=== PATIENT | male | born 1945 | race Caucasian/White ===

== ENCOUNTER 2017-02-21 10:34 | Observation (INO) | payer MEDICARE ==
[~2017-02-21] VITALS: Ht 182.9 cm; Wt 89.4 kg
[2017-02-21] VITALS (7 sets, daily range): BP systolic 125–148; BP diastolic 70–88; PULSE 54–70; RESP 12–18; O2SAT 95–98
[~2017-02-21 10:34] MED LIST: ASPI-13 PO; ATOR80TA77 PO; CHOL100045 PO; DOXA4TAB3 PO
--- NOTE | 2017-02-21 10:51 | ED.REPORT ---
HPI-Chest Pain 40 and Over Date of Service Feb 21, 2017 ED Provider: Dr. Thomason Pt is a 71 y/o male w/ a hx of CAD s/p CABGx3 and stents, HTN, presenting to the ED c/o a 3 hr episode of upper back pain which occurred 2 days ago. 2 days ago he experienced aching upper back pain with radiation to the left posterior neck which lasted 3-4 hours. His pain was accompanied by shortness of breath. Symptoms were not exacerbated by moving or bending. His has dementia so he did not want to leave her alone that day. He went to his PCP Dr. Murray yesterday who performed an EKG and bloodwork and told him that everything was normal although his pain was concerning for TAD. Pt denies any CP, cough, fever , chills, diaphoresis, abdominal pain, N/V/D. Nursing Notes Stated Complaint: CHEST PAIN/SOB Chief Complaint: Chest Pain Nursing Notes Reviewed: Yes Allergies: Coded Allergies: No Known Allergies (Verified , 02/21/17) Scheduled Aspirin (Aspirin) 81 Mg Tablet 81 MG PO DAILY Atorvastatin Calcium (Atorvastatin Calcium) 80 Mg Tablet 80 MG PO DAILY Doxazosin Mesylate (Doxazosin Mesylate) 4 Mg Tablet 4 MG PO DAILY Omeprazole (Omeprazole) 20 Mg Capsule. 20 MG PO DAILY General Time Seen by MD: 10:50 Chief Complaint Back pain Hx Obtained From: Patient Arrived By: Walk-in Sudden in Onset?: No Onset Occurred: 2 days ago Symptom Duration: 1 - 4 hours Location: : Back Quality: Painful Radiation: : Neck Severity: Current: No pain currently Severity: Maximum: Pain level 8 out of 10 Recent Healthcare: Recent doctor visit, Recent testing Past Medical History Past Medical History GERD Hypertension CAD s/p CABG x3 and stents Hiatal hernia s/p repair Past Surgical History CABGx3 at in 1998 Cardiac stent Cholecystectomy Hiatal hernia repair Smoking History Former Smoker Social History Alcohol Use: Denies alcohol use Drug Use: Denies drug use Other Social History: 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 Physical Exam Initial Vital Signs Vital Signs (First) Date Time Temp Pulse Resp B/P Pulse Ox O2 Delivery O2 Flow Rate FiO2 02/21/17 10:49 36.2 58 12 135/79 97 Room Air Initial VS: Reviewed, Vital signs normal Head / Eyes: Atraumatic, Normocephalic, PERRL ENT: Mucous membranes moist, Conjunctiva normal, No scleral icterus Neck: Supple, Full range of motion Extremities: Vascular intact, Neuro intact, No swelling, No tenderness Skin: Warm, Dry, No cyanosis Neurologic: Alert, Oriented, Nonfocal Psychiatric: Mood/affect normal, Behavior normal, Normal thought content General/Constitutional: Awake, Alert, No acute distress, Well appearing, Cooperative, Not toxic appearing Respiratory / Chest: Atraumatic, Breath sounds NL, Breath sounds = bilat, No respiratory distress, No rales, No rhonchi, No wheezing, No retractions, No stridor, No chest tenderness, No chest wall deformity, No crepitus Well healed sternotomy scar anterior chest wall Cardiovascular: Heart rate NL, Regular rhythm, Heart sounds NL, No gallop, No murmurs, No rubs, Cap refill not delayed, Peripheral circulation NL Abdomen: Atraumatic, Soft, No guarding, No rebound, No distention, No palpable mass Back: Atraumatic, Inspection NL, Full range of motion, Painless range of motion , Non-tender, No midline vertebral tend, No paraspinal tenderness, No muscle spasm Interpretation & Diagnostics Interpretation & Diagnostics: CT chest/abd w/ and w/out contrast: IMPRESSION: 1. No acute process. 2. Focal limited dissection within the distal abdominal aorta, likely unchanged compared to 9.6.14, allowing for differences in technique. 3. Coronary artery disease. 4. Nonobstructing renal calculi. Dictated by: Whit Angela M.D. on 02/21/2017 at 15:23 Approved by: Whit Angela M.D. on 02/21/2017 at 15:29 Lab Results Interpretation Result Diagram: 02/21/17 1100 02/21/17 1100 Test 02/21/17 11:00 02/21/17 15:45 02/21/17 16:00 White Blood Count 3.8th/mm3 (3.8-10.1) Red Blood Count 4.42mil/mm3 (4.40-5.80) Hemoglobin 14.1g/dL (13.8-17.2) Hematocrit 40.7% (41.0-50.0) Mean Corpuscular Volume 92.1fL (81-100) Mean Corpuscular Hemoglobin 31.9pg (27.0-35.0) Mean Corpuscular Hemoglobin Concent 34.6% (32.0-37.0) Red Cell Distribution Width 13.3% (12.3-15.4) Platelet Count 139bil/L (150-400) Neutrophils (%) (Auto) 60.9% (40-74) Lymphocytes (%) (Auto) 25.1% (14-46) Monocytes (%) (Auto) 10.8% (4-12) Eosinophils (%) (Auto) 2.6% (0-5) Basophils (%) (Auto) 0.3% (0-3) Sodium Level 136mEq/L (134-144) Potassium Level 3.8mEq/L (3.5-5.2) Chloride Level 102mEq/L (97-108) Carbon Dioxide Level 22mmol/L (18-29) Blood Urea Nitrogen 17mg/dL (8-27) Creatinine 1.09mg/dL (0.76-1.27) Estimat Glomerular Filtration Rate 71mL/min (>59) Glucose Level 127mg/dL (60-99) Calcium Level 8.3mg/dL (8.5-10.1) Total Bilirubin 0.6mg/dL (0.0-1.2) Aspartate Amino Transf (AST/SGOT) 28U/L (0-50) Alanine Aminotransferase (ALT/SGPT) 24U/L (0-44) Alkaline Phosphatase 82U/L (25-160) Total Protein 6.6g/dL (6.4-8.4) Albumin 4.1g/dL (3.4-5.0) Hold Urine Received (Received) Magnesium Level 1.9mg/dL (1.6-2.6) Total Creatine Kinase 66U/L (21-232) Creatine Kinase MB 1.3ng/mL (0.0-10.4) Creatine Kinase MB % % (0.0-5.0) Troponin T < 0.010ug/L (0.0-0.011) Thyroid Stimulating Hormone (TSH) 2.110uIU/mL (0.450-4.500) ECG Interpretation ECG Interpretation: Sinus rhythm rate 58 Inferior Q waves present Time: 11:22 Interpreted by: ED physician Normal ECG Interpretation: No acute ischemic changes, No change from prior ECGs X-Ray Chest Interpretation Chest Xray Interpretation: IMPRESSION: No acute cardiopulmonary disease. Dictated by: Chuy Cheema RRA Interpreted: Radha Zazueta MD on 02/21/2017 at 11:36 Transcribed by: MARIANN on 02/21/2017 at 11:36 View: Portable, 1 view Interpretation / Wet Read by: Interpret - Radiologist Re-Eval/Medical Decision Med Decision/Clinical Course Pt is a 71 y/o male w/ a hx of CAD s/p CABGx3 and stents, HTN, presenting to the ED c/o a 3 hr episode of upper back pain which occurred 2 days ago. 2 days ago he experienced aching upper back pain with radiation to the left posterior neck which lasted 3-4 hours. His pain was accompanied by shortness of breath. Symptoms were not exacerbated by moving or bending. His has dementia so he did not want to leave her alone that day. He went to his PCP Dr. Murray yesterday who performed an EKG and bloodwork and told him that everything was normal although his pain was concerning for TAD. Pt denies any CP, cough, fever , chills, diaphoresis, abdominal pain, N/V/D. The emergency department the patient is afebrile, hemodynamically stable, chest pain-free and in no apparent distress. EKG was obtained and interpreted by myself as documented above. CXR: Obtained, reviewed and interpreted by myself shows no evidence of acute infiltrates, effusions or pneumothorax. Cardiac and mediastinal silhouette normal. No bony or soft tissue abnormalities. Labs notable as below: CBC: unremarkable CMP: unremarkable Troponin: negative She was discussed in depth with his primary care physician Dr. Murray remains concerned about possible acute coronary syndrome versus thoracic aortic dissection told this does seem relatively unlikely given the overall presentation. That being said I opted to obtain aortogram is documented below: 1. No acute process. 2. Focal limited dissection within the distal abdominal aorta, likely unchanged compared to 9.6.14, allowing for differences in technique. 3. Coronary artery disease. 4. Nonobstructing renal calculi. Region of focal dissection within the distal abdominal aorta is somewhat confounding as this does not seem to fit his clinical presentation at all. Apparently this is not new and there is no evidence that this has involved since the prior CT scan. He likely should be further discussed and evaluated by a cardiothoracic surgeon though I doubt that this is claims his presentation today. From a cardiac perspective the patient is high risk and warrants admission for serial cardiac enzymes and further evaluation of acute coronary syndrome. Patient was transferred in stable condition. Time of Eval: 15:39 Re-Evaluation/Progress Note: Pt rechecked. Informed pt of need for admission. Pt understands and agrees with plan for admission. All questions addressed. 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 Counseled Regarding: Diagnosis, Lab results, Need for follow-up, When/why to return to ED Discharge & Departure Primary Impression: Dissection of abdominal aorta Additional Impressions: Upper back pain Chest pain Chest pain type: unspecified Qualified Code: R07.9 - Chest pain, unspecified History of coronary artery disease Disposition: ADMITTED TO HOSPITAL Discharge Condition All VS Reviewed: Yes Condition: Stable Referrals: Jose Murray MD (PCP) Nitinibluis f Attestation Portions of this note were transcribed by Jason Mcarthur. I, Dr. Thomason personally performed the history, physical exam and medical decision-making; I reviewed and confirmed the accuracy of the information in the transcribed note. Signed by April Martin, 02/21/17 - 1300 copies to: Jose Murray MD, Beck O MD Feb 21, 2017 10:51 JASON MCARTHUR Feb 21, 2017 11:22
[2017-02-21 11:26] LABS: BASOPHILS % (AUTO) 0.3 % (0-3); EOSINOPHILS % (AUTO) 2.6 % (0-5); MONOCYTES % (AUTO) 10.8 % (4-12); Mean Corpuscular Hemoglobin 31.9 pg (27.0-35.0); Mean Corpuscular Volume 92.1 fL (81-100); NEUTROPHILS % (AUTO) 60.9 % (40-74); Platelet Count 139 bil/L (150-400)
--- NOTE | 2017-02-21 11:36 | DRSVH ---
PROCEDURE: X-RAY CHEST ONE VIEW, PORTABLE ([id number]) INDICATIONS: pain TECHNIQUE: One view of the chest was acquired. COMPARISON: None. FINDINGS: Surgical changes and devices: Post median sternotomy. Lungs and pleura: No pleural effusions or pneumothorax. Lungs are clear. Mediastinum: Mediastinal contours appear normal. Heart size is normal. Bones and chest wall: No suspicious bony lesions. Overlying soft tissues appear unremarkable. IMPRESSION: No acute cardiopulmonary disease. Dictated by: Chuy Cheema [facility] Interpreted: Radha Zazueta MD on 02/21/2017 at 11:36 Transcribed by: MARIANN on 02/21/2017 at 11:36 Approved by: Radha Zazueta MD, PhD on 02/21/2017 at 16:50
[2017-02-21 11:49] LABS: TROPONIN T < 0.010 ug/L (0.0-0.011)
[2017-02-21 11:57] LABS: Magnesium 1.9 mg/dL (1.6-2.6)
--- NOTE | 2017-02-21 15:30 | DRSVH ---
PROCEDURE: CT ANG CHEST/ABD W/WO CONTRAST ([id number]) INDICATIONS: CHEST PAIN TECHNIQUE: Precontrast 5 mm thick sections acquired from the lung apices to the iliac crests. After the adminis tration of intravenous contrast, 3 mm thick sections again acquired from the lung apices to the iliac crests. 3-dimensional maximum intensity projection (MIP) oblique sagittal and coronal reformats wer e then acquired, and/or 3-dimensional volume rendering reformats. For radiation dose reduction, the following was used: automated exposure control. COMPARISON: [facility], CT, IVP-CT (ABD W/WO;PEL W/W/O), 08/27/2014, 11:08. FINDINGS: Image quality: Excellent. AORTA: The thoracic aorta is within normal limits, with no evidence of dissection, nor aneurysm. The re is a focal limited dissection within the distal abdominal aorta, which was likely present on the examination, but less well seen, secondary to differences in contrast bolus timing. There is mild ectasia of the infrarenal abdominal aorta, with mild mural left-sided thrombus, measuring ro ughly 23 mm, as before. CHEST: Lungs and pleura: No acute airspace opacities. No pleural effusions or pneumothorax. Central and p eripheral airways are patent and normal in caliber. Mediastinum: Heart size is normal. There is calcification of the coronary vasculature. No pericardi al effusion. No mediastinal or hilar adenopathy by size criteria. Central pulmonary arteries are no rmal in size. Esophagus is normal in caliber. No hiatal hernias. Bones and chest wall: Median sternotomy. No axillary adenopathy by size criteria. Thyroid gland is within normal limits. No suspicious bony lesions. No vertebral body compression fractures. ABDOMEN: Vasculature: Celiac trunk and mesenteric arteries are patent. Renal arteries are also patent. Solid organs: Liver and spleen are normal in size. Right and left hepatic lobe cysts are present, as before. Gallbladder is surgically absent. Biliary system is non dilated. Pancreas enhances normall y. No adrenal nodules. Bilateral renal cysts are present, as before. There is a nonobstructing 6 mm calculus within the superior pole left kidney. A nonobstructing 2 mm diameter calculus within the siegel perior pole left kidney is present. Within the left interpolar/inferior pole kidney, there is a nonob structing 1-2 mm diameter calculus. No right nephrolithiasis. Both kidneys are otherwise normal in si ze and enhancement, without hydronephrosis. Peritoneum and bowel: No free fluid or air. There is an increased diverticulum of the 2nd portion o f the duodenum, currently measuring 42 mm diameter. Bowel loops are otherwise normal in caliber and w all thickness. Nodes and vessels: No retroperitoneal or mesenteric adenopathy by size criteria. Inferior vena cava is normal in morphology. Bones: No suspicious bony lesions. No vertebral body compression fractures. Miscellaneous: No ventral hernias. IMPRESSION: 1. No acute process. 2. Focal limited dissection within the distal abdominal aorta, likely unchanged compared to 9.6.14, a llowing for differences in technique. 3. Coronary artery disease. 4. Nonobstructing renal calculi. Dictated by: Whit Angela M.D. on 02/21/2017 at 15:23 Approved by: Whit Angela M.D. on 02/21/2017 at 15:29
[2017-02-21] MEDS ORDERED: Alum-Mag Hydrox-Simeth 30 mL Suspension PO PRN ×2 (15:35→16:35)
[2017-02-21] MEDS ORDERED: Ondansetron 2 mg/mL 2 mL Inj IVPUSH PRN ×2 (15:35→16:35)
[2017-02-21] MEDS ORDERED: ASPI-973 PO (15:44)
[2017-02-21] MEDS ORDERED: OMEP20CA11 PO (15:44)
[2017-02-21] MEDS ORDERED: Senna-Docusate 8.6-50 mg Tablet PO PRN (16:35)
[2017-02-21] MEDS ORDERED: Polyethylene Glycol (PEG) 17 Gm Powder PO PRN (16:35)
[2017-02-21 17:15] LABS: Creatine Kinase 66 U/L (21-232); Magnesium 1.9 mg/dL (1.6-2.6)
--- NOTE | 2017-02-21 17:35 | NUR ---
Admission Patient arrived to floor at approx 1730. Oriented patient to room and hospital policies. Denies chest pain or any pain of that matter. A/O x 4. Able to make all needs known. Continue frequent rounding.
--- NOTE | 2017-02-21 17:38 | PCM.HPMED ---
Subjective Date of Service Feb 21, 2017 Primary Provider: Admitting Physician: Primary Care Physician: Jose Murray MD Attending Physician: Chief Complaint: Ripping back and neck pain History of Present Illness: Jeannie Díaz is a 71 year old man with past medical history significant for CAD stents and s/p 3 vessel CABG (1998), hypertension presenting to the [facility] ED complaining of tearing upper-mid back pain with radiation to the left posterior neck which occurred 2 days ago. The pain started after he was moving heavy barbecues from a picker truck. After cooking a meal for this sikhism the patient began to feel "not well." He noted generalized weakness and malaise. He stated that he wanted to throw up but apparently was not nauseous. He denies any fevers, chills, shortness of breath, chest pain, diaphoresis, palpitations, myalgia or arthralgia. Two days ago he experienced aching upper back pain with radiation to the left posterior neck which lasted 3-4 hours. His pain was accompanied by shortness of breath. Symptoms were not exacerbated by moving or bending. 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 He went to his PCP Dr. Murray yesterday who performed an EKG and blood work with apparently normal results although his pain was concerning for TAD. The patient is a former smoker but quit in the 70s. 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 When the patient had his CABG his main symptom was heartburn which was actually due to his large hiatal hernia. He is currently pain free. In the ED his vitals were stable. He was given Zofran and Malox. Review of Systems: A comprehensive review of systems was conducted with the patient and found to be negative except as above in the History of Present Illness. Allergies Coded Allergies: No Known Allergies (Verified , 02/21/17) Home Medications Aspirin (Aspirin) 81 Mg Tablet 81 MG PO DAILY Atorvastatin Calcium (Atorvastatin Calcium) 80 Mg Tablet 80 MG PO DAILY Doxazosin Mesylate (Doxazosin Mesylate) 4 Mg Tablet 4 MG PO DAILY Omeprazole (Omeprazole) 20 Mg Capsule.dr 20 MG PO DAILY PMH GERD Hypertension CAD s/p CABG x3 (1998) and stents Hiatal hernia Surgical History CABGx3 at in 1998 Cardiac stent Cholecystectomy Hiatal hernia repair Family History All of his family members suffer from heart disease. He states he is the oldest living male in his family. Social History Hx Alcohol Use: Yes (quit in 1984) Hx Substance Use: No Hx Tobacco Use: Yes (quit in the ) Smoking Status: Former Smoker Exam Vital Signs Vital Sign - Last Date Time Temp Pulse Resp B/P Pulse Ox O2 Delivery O2 Flow Rate FiO2 02/21/17 13:03 58 18 125/76 95 Room Air 02/21/17 10:49 36.2 Exam General: No acute distress, well-developed, well-nourished, appropriately interactive HEENT: Normocephalic, atraumatic. External ears without defect. Pupils equal, round, and reactive to light and accommodation. Anicteric sclerae, moist conjunctivae, and no lid lag. Oropharynx free of erythema and cobble stoning with moist mucosa. Neck: Supple with full range of motion. No jugular venous distension. No bruits. No lymphadenopathy or thyromegaly. Cardiovascular: Regular rate and rhythm with no murmurs, rubs, or gallops appreciated Pulmonary: Clear to auscultation bilaterally with no crackles, wheezes, or rhonchi. Normal respiratory effort with no use of accessory muscles. Abdomen: Bowel tones present. Soft, nontender, nondistended. No hepatosplenomegaly or masses appreciated. Extremities: No clubbing, cyanosis, edema, or lymphadenopathy appreciated. Skin: Normal temperature, turgor, and texture; no rash, ulcers, or subcutaneous nodules appreciated. Neurological: Cranial nerves grossly intact. Normal muscle strength, tone, and bulk. Reflexes, coordination, and sensory function within normal limits. No known gait impairment. Psychiatric: Normal mood and affect. Alert and oriented to person, place, and time. Lab and Diagnostics Result Diagram: 02/21/17 1100 02/21/17 1100 X-Rays, CTs and MRIs CT ANG CHEST/ABD W/WO CONTRAST IMPRESSION: 1. No acute process. 2. Focal limited dissection within the distal abdominal aorta, likely unchanged compared to 9.6.14, allowing for differences in technique. 3. Coronary artery disease. 4. Nonobstructing renal calculi. Dictated by: Whit Angela M.D. on 02/21/2017 at 15:23 X-RAY CHEST ONE VIEW, PORTABLE IMPRESSION: No acute cardiopulmonary disease. Dictated by: Chuy Cheema RRA Interpreted: Radha Zazueta MD on 02/21/2017 at 11:36 12-lead ECG NSR, normal axis, low voltage, No ST changes. Assessment & Plan Jeannie Díaz is a 71 year old man with past medical history significant for CAD stents and s/p 3 vessel CABG (1998), hypertension presenting to the [facility] ED complaining of tearing upper-mid back pain with radiation to the left posterior neck which occurred 2 days ago. Atypical chest pain in the setting of significant CAD -Although the patient's pain is atypical given his past cardiac history and his risk factors it is prudent to work him up for cardiac causes -Thoracic aortic aneurism and PE ruled out -No ECHO on record, will order -81 mg ASA -Continue home statin -Troponin negative x2, will continue to trend -Exercise stress tomorrow with Arline back up -Telemetry -Nitroglycerin PRN -EKG in AM, PRN chest pain -NPO after midnight, no caffeine -Patient borderline bradycardic will hold beta blockers Coronary artery disease status post stents and 3 vessel CABG (1998) -Continue Atorvastatin -Continue home ASA Hypertension -Patient's only medication is Doxazosin, will continue Stable abdominal aortic dissection -Noted on prior imaging -Pt to follow-up as an outpatient with PCP and/or Vascular Surgery CODE STATUS: DNR/DNI Patient is admitted to observation status with anticipated length of stay <2 midnights due to complexity of illness. Attending Statement The patient was seen and examined together with Dr. Chase on 02/21/2017 and I agree with the history, exam and plan as outlined in the note above. Eusebia Chase DO Feb 21, 2017 17:38 Rolly Wright MD Feb 22, 2017 11:28
[2017-02-21] MEDS: 0.9% Sodium Chloride 1,000 ML IV SCH (17:57)
--- NOTE | 2017-02-21 20:49 | NUR ---
Case Management: JULIANA explained to patient at 2014, pt had many questions--all answered at that time. Pt able to sign but requested that I time and date which I did and he initialed. Signed original in chart, copy given to patient. Rutyh Canales RN
[2017-02-21 23:13] LABS: Creatine Kinase 63 U/L (21-232)
[2017-02-22] MEDS: Heparin 5,000 Unit/mL Inj SUBQ SCH ×2 (00:30→08:52)
[2017-02-22] MEDS: Sodium Chloride LOK Flush 10 mL Syringe IVFLUSH SCH ×2 (00:30→08:30)
[2017-02-22 02:07] VITALS: BP 132/82; PULSE 51; RESP 18; O2SAT 94
[2017-02-22 06:49] LABS: BASOPHILS % (AUTO) 0.4 % (0-3); EOSINOPHILS % (AUTO) 4.2 % (0-5); MONOCYTES % (AUTO) 8.8 % (4-12); Mean Corpuscular Hemoglobin 31.6 pg (27.0-35.0); Mean Corpuscular Volume 92.7 fL (81-100); NEUTROPHILS % (AUTO) 56.5 % (40-74); Platelet Count 151 bil/L (150-400)
[2017-02-22 07:18] VITALS: BP 131/80; PULSE 51; RESP 18; O2SAT 95
[2017-02-22 08:00] VITALS: PULSE 54
[2017-02-22] MEDS: 0.9% Sodium Chloride 1,000 ML IV SCH (08:52)
[2017-02-22 11:30] VITALS: BP 129/75; PULSE 51; RESP 18; O2SAT 97
--- NOTE | 2017-02-22 12:34 | NUR ---
Off floor to CVL / tele Patient off floor at 1230 to CVL. Tele remains SR/SB 50-60 per tech. Vitals stable, denies chest pain or pressure and in no apparent distress. 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
[2017-02-22] MEDS ORDERED: NITR0.4T SL (15:23)
--- NOTE | 2017-02-22 15:56 | DRSVH ---
[facility] [address] [place] [address] Echocardiogram Report Name: AYDEE WILKINSON SStudy Date: 02/22/2017 Height: 72 in Hospital Exam Location: [facility] Weight: 197 lb Gender: Male BSA: 2.1 m2 : 1945 Age: 71 yrs BP: 131/80 mmHg Reason For Study: Chest pain Ordering Physician: Performed By: Mike Donnelly Interpretation Summary Borderline concentric left ventricular hypertrophy with ejection fraction 60- 65%. Grade II diastolic dysfunction.. Right ventricular systolic function is borderline reduced. Moderately dilated left atrium. No significant valvular abnormality. Mildly enlarged ascending aorta. Procedure: A two-dimensional transthoracic echocardiogram with color flow and Doppler was performed. The study quality was technically adequate. The patient was in sinus bradycardia with heart rates between 51-59 bpm during the exam. Left Ventricle: The left ventricle is normal in size. There is borderline concentric left ventricular hypertrophy. Proximal septal thickening is noted. The ejection fraction is estimated to be 60-65%. There are no focal wall motion abnormalities. Assessment of diastolic parameters suggests a pseudonormalization pattern, consistent with elevated filling pressures. Right Ventricle: The right ventricle is normal size. Right ventricular systolic function is borderline reduced. Atria: The left atrium is moderately dilated. Right atrial size is normal. The interatrial septum is intact with no evidence for an atrial septal defect. Mitral Valve: The mitral valve leaflets are mildly calcified. The mitral valve leaflets appear to open well. There is trace mitral regurgitation. Aortic Valve: The aortic valve is trileaflet. The aortic valve opens well. The aortic valve is slightly calcified. There is no aortic valve stenosis. No aortic regurgitation is present. Tricuspid Valve: The tricuspid valve is normal in structure and function. There is trace tricuspid regurgitation. Right ventricular systolic pressure is estimated to be 24 mmHg plus the clinically estimated CVP which cannot be estimated on this exam. Pulmonic Valve: The pulmonic valve is not well seen, but is grossly normal. There is a trace or physiologic amount of pulmonic regurgitation. Great Vessels: The aortic Sinus(es) of Valsalva are borderline dilated. The ascending aorta is mildly enlarged. The aortic arch is normal in size. The pulmonary artery is normal size. The inferior vena cava was not visualized. Pericardium/ Pleura There is no pericardial effusion. There is no pleural effusion. MMode/2D Measurements & Calculations LVIDd: 4.7 cm RA long axis LVOT diam: 2.3 cm LVIDs: 3.4 cm LA A2 area: 23.3 cm Ao root diam FS: 27.4 % LA A4 area: 25.9 cm RA area EPSS: 0.15 cm LA length (vol) asc Aorta Diam IVSd: 1.1 cm : 19.6 cm LVPWd: 1.0 cm LA vol: 91.5 ml RA vol Ao Arch Diam (Prox LA vol index : 50.2 ml Trans): 3.2 cm RA : 43.2 ml/m2 : 23.7 mm2 LV bah. diameter/BSA LV sys. diameter/BSA RVD1 (basal) RVD2 (mid): 3.3 cm (cm/m^2): 2.2 (cm/m^2): 1.6 TAPSE: 1.5 cm Doppler Measurements & Calculations Ao V2 max MV E max howard MV E/A: 1.1 TR max howard : 110.7 cm/sec : 63.8 cm/sec Med Peak E' Howard : 244.8 cm/sec Ao max PG MV A max howard TR max PG : 4.9 mmHg : 58.6 cm/sec E/E' med: 8.8 : 24.0 mmHg Ao mean PG MV P1/2t: 48.5 msec Lat Peak E' Howard PA V2 max : 104.2 cm/sec LVOT Max Howard E/E' lat: 8.9 PA mean PG : 83.0 cm/sec E/e' average: 8.8 SPRING(I,D): 3.3 cm PA Accel Time sev ratio : 0.06 sec MV dec time MV P1/2t max howard Ao V2 mean LV V1 max PG : 0.17 sec : 76.7 cm/sec Ao V2 VTI: 27.2 cm LV V1 VTI MVA(P1/2t): 4.5 cm2 : 20.6 cm SPRING(V,D): 3.2 cm2 PA V2 mean SPRING indexed to BSA : 66.9 cm/sec (cm^2/m^2): 1.5 PA pr(Accel) : 52.5 mmHg Electronically signed by: Loyd Gregg on Reading Physician:02/22/2017 11:36 AM
--- NOTE | 2017-02-22 16:00 | DRSVH ---
PROCEDURE: 1 DAY TREADMILL STRESS TEST Rest and exercise myocardial perfusion SPECT with gated imaging and ejection fraction RADIOPHARMACEUTICAL: 8.2 mCi Tc-99m tetrafosmin IV at rest and 22.7 mCi Tc-99m tetrafosmin IV at peak exercise. [id number]-iop-[id number] was performed. INDICATIONS: 71 year-old male with coronary artery disease. The patient has history of coronary bypa ss grafting in 1998 and coronary stenting in 2001. Evaluate myocardial ischemia. TECHNIQUE: Radiopharmaceutical was injected at peak stress test, and also at rest. SPECT images wer e obtained. SPECT myocardial perfusion images were displayed in short axis, horizontal long axis, an d vertical long axis views. Gated images were reviewed using [employer] software. COMPARISON: NM, MYOCARD PERF SPECT MULT, MIBI, 11/29/2006, 11:52. NM, MYOCARD PERF SPECT MULT, MIBI , 05/30/2005, 12:26. NM, EMILY PERF SPECT SINGLE (PNL), 04/13/2009, 10:15. NM, EMILY PERF SPECT SINGLE (P NL), 04/12/2009, 10:15. [facility], NM, MYOCARD PERF SPECT MULT, MIBI, 01/18/2015, 11:36. CARDIAC STRESS: A standard Allan treadmill exercise tolerance test was performed by the patient under the supervision of an attending staff. The patient exercised for 10 minutes and 35 seconds; functional aerobic impa irment (REMA) is -55 %. Hemodynamic data: There is normal blood pressure and heart rate response to exercise stress. Patien t achieved 105% of maximum predicted heart rate at peak exercise. Symptoms: Patient denied chest pain during exercise. EKG: No diagnostic EKG changes of ischemia; no ectopy. FINDINGS: Raw data: There is good myocardial labeling by radiotracer. No significant motion artifacts. Left ventricle function: Gated images demonstrate normal left ventricle wall thickening. Mild centra l rocking, likely secondary to coronary bypass grafting. No transient ischemic dilation. The left v entricle resting end-diastolic volume is normal. Left ventricle stress ejection fraction is greater than 70%; normal values are above 45%. Myocardial perfusion: There is a small, mild, fixed defect in the inferior wall, which is improved o n prone imaging, likely caused by diaphragmatic attenuation artifact. There is otherwise normal distr ibution of activity in the left and right ventricular myocardium. No reversible perfusion defects to suggest local ischemia. Comparison to prior examinations: Compared with the last examination on 01/19/2015, there is no signi ficant change. IMPRESSION: 1. Probably normal myocardial perfusion images. No evidence for myocardial ischemia. 2. Normal left ventricular volume and systolic function. 3. Supernormal exercise capacity. No chest pain or diagnostic EKG changes for ischemia. PQRS ATTESTATIONS: Measure 322 - Is this imaging test primarily performed on a low-risk surgery patient for preoperative evaluation within 30 days preceding their low-risk non-cardiac surgery? Low-risk surgery is defined as cardiac or myocardial infarction less than 1%, including (but not limited to) endoscopic pr ocedures, superficial procedures, cataract surgery, and excisional breast surgery: Answer: No Measure 323 - Is this imaging test performed primarily for the monitoring of an asymptomatic patient who had percutaneous coronary intervention on the visit date or within 2 years of the visit date? An swer: No Measure 324 - Is this imaging test performed primarily for the initial detection and risk assessment on an asymptomatic, low coronary heart disease patient? Low CHD risk definition = clinicians should consider the maximum number of available patient factors used to estimate risk based on [place] (A TP III criteria), typically age, gender, diabetes, smoking status, and use of blood pressure medicati on, and integrate age appropriate estimates for missing elements, such as LDL or standard blood press ure. Answer: No Dictated by: Ml Newton M.D. on 02/22/2017 at 15:51 Approved by: Ml Newton M.D. on 02/22/2017 at 15:58
--- NOTE | 2017-02-22 16:07 | PCM.DIMED ---
Govea,Virgen Lena 02/22/17 1557: Discharge Instructions Date of Service Feb 22, 2017 Dates of Hospitalization Feb 21, 2017 at 16:46 Discharge Diagnosis Discharge Diagnosis 1. Atypical chest pain in the setting of significant coronary artery disease 2. Coronary artery disease status post stents and 3 vessel CABG (1998) 3. Hypertension 4. Stable abdominal aortic dissection Medication Instructions You have been given a prescription for nitroglycerin. If you have acute onset chest pain you may take 1 tablet under the tongue up to 3 times. You should call 911 and return to the emergency department with this condition. Test Results Your treadmill stress test shows: 1. Probably normal myocardial perfusion images. No evidence for myocardial ischemia. 2. Normal left ventricular volume and systolic function. 3. Supernormal exercise capacity. No chest pain or diagnostic EKG changes for ischemia. Your echocardiogram shows no focal wall abnormalities borderline left ventricular enlargement with a normal ejection fraction of 60-65 % No significant valvular abnormality Mildly enlarged ascending aorta Diet Heart Healthy Activity No restrictions Call your provider Fever or Chills, Shortness of breath, Chest pain, Excessive diarrhea, Weakness ( unilateral) Patient Instructions We have examined the appearance and function of your heart. It does not appear that you are having a heart attack. Please follow-up with your primary care provider, and return to the emergency department with acute onset chest pain. Follow-up plan Return to the your primary care provider within 2 weeks. Follow-up Provider: Jose Murray MD, Bhupinder S MD 02/23/17 1145: Virgen Govea DO Feb 22, 2017 15:57 Rolly Wright MD Feb 23, 2017 11:45
--- NOTE | 2017-02-22 16:43 | NUR ---
DISCHARGE Patient discharged home at 1630, ambulated off floor accompanied by RN. Vitals stable, denies pain and in no apparent distress. All belongings returned, IV discontinued intact. All instructions for diet, activity, medications, new prescriptions and follow-up reviewed with patient who reports understanding.
--- NOTE | 2017-02-22 18:08 | PCM.DC.MED ---
Discharge Summary Date of Service Feb 22, 2017 Dates of Hospitalization Date of Hospital Admission Feb 21, 2017 at 16:46 Date of Discharge: Feb 22, 2017 Providers: Admitting Physician: Kojo Welch MD Primary Care Physician: Jose Murray MD Attending Physician: Kojo Welch MD Diagnosis at Time of Discharge Diagnosis at Time of Discharge 1. Atypical chest pain in the setting of significant coronary artery disease 2. Coronary artery disease status post stents and 3 vessel CABG (1998) 3. Hypertension 4. Stable abdominal aortic dissection Procedures XRay, CTs & MRIs CT ANG CHEST/ABD W/WO CONTRAST IMPRESSION: 1. No acute process. 2. Focal limited dissection within the distal abdominal aorta, likely unchanged compared to 9.6.14, allowing for differences in technique. 3. Coronary artery disease. 4. Nonobstructing renal calculi. Dictated by: Whit Angela M.D. on 02/21/2017 at 15:23 X-RAY CHEST ONE VIEW, PORTABLE IMPRESSION: No acute cardiopulmonary disease. Dictated by: Chuy Cheema RRA Interpreted: Radha Zazueta MD on 02/21/2017 at 11:36 ECG 12 Lead NSR, normal axis, low voltage, No ST changes. Cardiac Echo Impression Echocardiogram Report Interpretation Summary Borderline concentric left ventricular hypertrophy with ejection fraction 60- 65%. Grade II diastolic dysfunction.. Right ventricular systolic function is borderline reduced. Moderately dilated left atrium. No significant valvular abnormality. Mildly enlarged ascending aorta. Procedure: A two-dimensional transthoracic echocardiogram with color flow and Doppler was performed. The study quality was technically adequate. The patient was in sinus bradycardia with heart rates between 51-59 bpm during the exam. Left Ventricle: The left ventricle is normal in size. There is borderline concentric left ventricular hypertrophy. Proximal septal thickening is noted. The ejection fraction is estimated to be 60-65%. There are no focal wall motion abnormalities. Assessment of diastolic parameters suggests a pseudonormalization pattern, consistent with elevated filling pressures. Right Ventricle: The right ventricle is normal size. Right ventricular systolic function is borderline reduced. Atria: The left atrium is moderately dilated. Right atrial size is normal. The interatrial septum is intact with no evidence for an atrial septal defect. Mitral Valve: The mitral valve leaflets are mildly calcified. The mitral valve leaflets appear to open well. There is trace mitral regurgitation. Aortic Valve: The aortic valve is trileaflet. The aortic valve opens well. The aortic valve is slightly calcified. There is no aortic valve stenosis. No aortic regurgitation is present. Tricuspid Valve: The tricuspid valve is normal in structure and function. There is trace tricuspid regurgitation. Right ventricular systolic pressure is estimated to be 24 mmHg plus the clinically estimated CVP which cannot be estimated on this exam. Pulmonic Valve: The pulmonic valve is not well seen, but is grossly normal. There is a trace or physiologic amount of pulmonic regurgitation. Great Vessels: The aortic Sinus(es) of Valsalva are borderline dilated. The ascending aorta is mildly enlarged. The aortic arch is normal in size. The pulmonary artery is normal size. The inferior vena cava was not visualized. Pericardium/ Pleura There is no pericardial effusion. There is no pleural effusion. Other Diagnostics PROCEDURE: 1 DAY TREADMILL STRESS TEST FINDINGS: Raw data: There is good myocardial labeling by radiotracer. No significant motion artifacts. Left ventricle function: Gated images demonstrate normal left ventricle wall thickening. Mild central rocking, likely secondary to coronary bypass grafting. No transient ischemic dilation. The left ventricle resting end-diastolic volume is normal. Left ventricle stress ejection fraction is greater than 70%; normal values are above 45%. Myocardial perfusion: There is a small, mild, fixed defect in the inferior wall , which is improved on prone imaging, likely caused by diaphragmatic attenuation artifact. There is otherwise normal distribution of activity in the left and right ventricular myocardium. No reversible perfusion defects to suggest local ischemia. Comparison to prior examinations: Compared with the last examination on 2014, there is no significant change. IMPRESSION: 1. Probably normal myocardial perfusion images. No evidence for myocardial ischemia. 2. Normal left ventricular volume and systolic function. 3. Supernormal exercise capacity. No chest pain or diagnostic EKG changes for ischemia. Dictated by: Ml Newton M.D. on 02/22/2017 at 15:51 Brief History History of present illness upon admission by Dr. Chase: Jeannie Díaz is a 71 year old man with past medical history significant for CAD stents and s/p 3 vessel CABG (1998), hypertension presenting to the [facility] ED complaining of tearing upper-mid back pain with radiation to the left posterior neck which occurred 2 days ago. 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 After cooking a meal for this worship the patient began to feel "not well." He noted generalized weakness and malaise. He stated that he wanted to throw up but apparently was not nauseous. He denies any fevers, chills, shortness of breath, chest pain, diaphoresis, palpitations, myalgia or arthralgia. Two days ago he experienced aching upper back pain with radiation to the left posterior neck which lasted 3-4 hours. His pain was accompanied by shortness of breath. Symptoms were not exacerbated by moving or bending. 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 He went to his PCP Dr. Murray yesterday who performed an EKG and blood work with apparently normal results although his pain was concerning for TAD. The patient is a former smoker but quit in the 70s. 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 When the patient had his CABG his main symptom was heartburn which was actually due to his large hiatal hernia. He is currently pain free. In the ED his vitals were stable. He was given Zofran and Malox. Hospital Course Jeannie Díaz is a 71 year old man with past medical history significant for CAD stents and s/p 3 vessel CABG (1998), hypertension presenting to the [facility] ED complaining of tearing upper-mid back pain with radiation to the left posterior neck which occurred 2 days ago. Atypical chest pain in the setting of significant CAD -Although the patient's pain is atypical given his past cardiac history and his risk factors it is prudent to work him up for cardiac causes -Thoracic aortic aneurism and PE ruled out -Echo results above -81 mg ASA -Continue home statin -Troponin negative x 3 -Exercise stress test performed, results above -Nitroglycerin PRN, prescription given upon discharge -Patient borderline bradycardic will hold beta blockers Coronary artery disease status post stents and 3 vessel CABG (1998) -Continue Atorvastatin -Continue home ASA Hypertension -Patient's only medication is Doxazosin, will continue Stable abdominal aortic dissection -Noted on prior imaging -Pt to follow-up as an outpatient with PCP and/or Vascular Surgery -Importance of emergency medical care with symptoms similar to those that he presented with discussed with patient CODE STATUS: DNR/DNI Patient is discharged home in stable condition Exam Vital Signs (Last) Date Time Temp Pulse Resp B/P Pulse Ox O2 Delivery O2 Flow Rate FiO2 02/22/17 11:30 36.7 51 18 129/75 97 Room Air Exam General: No acute distress, well-developed, well-nourished, appropriately interactive HEENT: Normocephalic, atraumatic. External ears without defect. Pupils equal, round, and reactive to light and accommodation. Anicteric sclerae, moist conjunctivae, and no lid lag. Oropharynx free of erythema and cobble stoning with moist mucosa. Neck: Supple with full range of motion. No jugular venous distension. No lymphadenopathy or thyromegaly. Cardiovascular: Regular rate and rhythm with no murmurs, rubs, or gallops appreciated Pulmonary: Clear to auscultation bilaterally with no crackles, wheezes, or rhonchi. Normal respiratory effort with no use of accessory muscles. Abdomen: Bowel tones present. Soft, nontender, nondistended. No hepatosplenomegaly or masses appreciated. Extremities: No clubbing, cyanosis, edema, or lymphadenopathy appreciated. Skin: Normal temperature, turgor, and texture; no rash, ulcers, or subcutaneous nodules appreciated. Neurological: Cranial nerves grossly intact. Normal muscle strength, tone, and bulk. No known gait impairment. Psychiatric: Normal mood and affect. Alert and oriented to person, place, and time. Test 02/21/17 11:00 02/21/17 15:45 02/21/17 16:00 02/21/17 22:33 Hemoglobin A1c 6.0% (4.8-5.6) Total Bilirubin 0.6mg/dL (0.0-1.2) Aspartate Amino Transf (AST/SGOT) 28U/L (0-50) Alanine Aminotransferase (ALT/SGPT) 24U/L (0-44) Alkaline Phosphatase 82U/L (25-160) Total Protein 6.6g/dL (6.4-8.4) Albumin 4.1g/dL (3.4-5.0) Hold Urine Received (Received) Magnesium Level 1.9mg/dL (1.6-2.6) Thyroid Stimulating Hormone (TSH) 2.110uIU/mL (0.450-4.500) Total Creatine Kinase 63U/L (21-232) Creatine Kinase MB 1.4ng/mL (0.0-10.4) Creatine Kinase MB % % (0.0-5.0) Troponin T 0.010ug/L (0.0-0.011) Test 02/22/17 06:20 02/22/17 06:25 White Blood Count 4.8th/mm3 (3.8-10.1) Red Blood Count 4.12mil/mm3 (4.40-5.80) Hemoglobin 13.0g/dL (13.8-17.2) Hematocrit 38.2% (41.0-50.0) Mean Corpuscular Volume 92.7fL (81-100) Mean Corpuscular Hemoglobin 31.6pg (27.0-35.0) Mean Corpuscular Hemoglobin Concent 34.0% (32.0-37.0) Red Cell Distribution Width 13.0% (12.3-15.4) Platelet Count 151bil/L (150-400) Neutrophils (%) (Auto) 56.5% (40-74) Lymphocytes (%) (Auto) 29.9% (14-46) Monocytes (%) (Auto) 8.8% (4-12) Eosinophils (%) (Auto) 4.2% (0-5) Basophils (%) (Auto) 0.4% (0-3) Sodium Level 137mEq/L (134-144) Potassium Level 4.4mEq/L (3.5-5.2) Chloride Level 103mEq/L (97-108) Carbon Dioxide Level 22mmol/L (18-29) Blood Urea Nitrogen 13mg/dL (8-27) Creatinine 1.09mg/dL (0.76-1.27) Estimat Glomerular Filtration Rate 71mL/min (>59) Glucose Level 99mg/dL (60-99) Calcium Level 8.4mg/dL (8.5-10.1) Triglycerides Level 74mg/dL (0-149) Cholesterol Level 120mg/dL (100-199) LDL Cholesterol, Calculated 58.200mg/dL (0-99) VLDL Cholesterol 14.800mg/dL HDL Cholesterol 47mg/dL (>39) Cholesterol/HDL Ratio 2.55 (0.0-4.4) Discharge Medications Discharge Medications Aspirin (Aspirin) 81 Mg Tablet 81 MG PO DAILY (Reported) Atorvastatin Calcium (Atorvastatin Calcium) 80 Mg Tablet 80 MG PO DAILY ( Reported) Doxazosin Mesylate (Doxazosin Mesylate) 4 Mg Tablet 4 MG PO DAILY (Reported) Omeprazole (Omeprazole) 20 Mg Capsule.dr 20 MG PO DAILY (Reported) As needed Nitroglycerin SL (Nitrostat) 0.4 Mg Tab.subl 0.4 MG SL Q5MIN PRN PRN For Chest Pain place 0.4gm tablet under the tongue every 5 minutes up to 3 times for chest pain Prescribed by: CATALINO BUCKLEY, DO Additional med instructions You have been given a prescription for nitroglycerin. If you have acute onset chest pain you may take 1 tablet under the tongue up to 3 times. You should call 911 and return to the emergency department with this condition. Followup Plan Disposition: Patient discharged home in stable condition Follow-up plan Return to the your primary care provider within 2 weeks. Discharge Diet: Heart Healthy Discharge Activity: No restrictions Patient Instructions We have examined the appearance and function of your heart. It does not appear that you are having a heart attack. Please follow-up with your primary care provider, and return to the emergency department with acute onset chest pain. Follow-up Provider: Jose Murray MD Attending Statement The patient was seen and examined together with Dr. Buckley on 02/22/2017 and I agree with the history, exam and plan as outlined in the note above. copies to: Jose Murray MD, Erika R DO Feb 22, 2017 18:08 Rolly Wright MD Feb 23, 2017 11:45
== END 2017-02-22 16:38 | disposition home or self-care (01) ==
LOC: SED 10:34 → MPC 16:46
PROVIDERS: ADMIT Internal Medicine; ATTEND Family Medicine
DX: R07.89 Other chest pain (principal); I25.10 Atherosclerotic heart disease of native coronary artery without angina pectoris; I10 Essential (primary) hypertension; M54.89 Other dorsalgia; R06.02 Shortness of breath; K21.9 Gastro-esophageal reflux disease without esophagitis; N20.0 Calculus of kidney; K44.9 Diaphragmatic hernia without obstruction or gangrene; Z66 Do not resuscitate; Z87.891 Personal history of nicotine dependence; Z95.1 Presence of aortocoronary bypass graft; Z95.5 Presence of coronary angioplasty implant and graft; Z79.82 Long term (current) use of aspirin
CPT/HCPCS: 36415; 71010; 71275; 74175; 78452; 80048; 80053; 80061; 82550; 82553; 82948; 83036; 83735; 84443; 84484; 85025; 93005; 93017; 99285; A9502; C8929; G0378; J1644; J7030; Q9967